=== PATIENT | male | born 1960 | race Caucasian/White ===

== ENCOUNTER 2020-11-28 09:16 | Inpatient (IN) | payer OTHER ==
[~2020-11-28] VITALS: Ht 177.8 cm; Wt 82.8 kg
[2020-11-28 09:48] LABS: BILIRUBIN, URINE MANUAL OBSCURED (NEGATIVE); GLUCOSE, URINE (UA) MANUAL OBSCURED mg/dL (NEGATIVE); KETONE, URINE MANUAL OBSCURED mg/dL (NEGATIVE); UROBILINOGEN, URINE MANUAL OBSCURED mg/dl (NORMAL)
[2020-11-28 10:40] LABS: HEMATOCRIT 44.2 % (42.0-52.0); HEMOGLOBIN 14.8 g/dl (13.5-17.5); MEAN CORPUSCULAR HGB CONC 33.5 g/dl (32.0-36.5); MEAN CORPUSCULAR VOLUME 89.5 fl (80.0-96.0); PLATELET COUNT, AUTOMATED 273 10^3/uL (150-450); RED BLOOD COUNT 4.94 10^6/uL (4.30-6.10); WHITE BLOOD COUNT 8.5 10^3/uL (4.0-10.0)
[2020-11-28 10:53] LABS: INR 0.92; PROTHROMBIN TIME 12.5 SECONDS (12.5-14.3)
[2020-11-28 10:54] LABS: PARTIAL THROMBOPLASTIN TIME 39.2 SECONDS (24.2-38.5)
[2020-11-28 11:08] LABS: BLOOD UREA NITROGEN 12 MG/DL (7-18); CALCIUM LEVEL 9.4 MG/DL (8.5-10.1); CARBON DIOXIDE LEVEL 24 MEQ/L (21-32); CHLORIDE LEVEL 107 MEQ/L (98-107); CREATININE FOR GFR 0.87 MG/DL (0.70-1.30); GLOMERULAR FILTRATION RATE > 60.0 (>56); GLUCOSE, FASTING 96 MG/DL (70-100); POTASSIUM SERUM 3.7 MEQ/L (3.5-5.1); SODIUM LEVEL 138 MEQ/L (136-145)
[2020-11-28 11:37] LABS: ALBUMIN 4.1 GM/DL (3.2-5.2); BILIRUBIN,DIRECT 0.1 MG/DL (0.0-0.2); BILIRUBIN,TOTAL 0.4 MG/DL (0.2-1.0); TOTAL PROTEIN 7.3 GM/DL (6.4-8.2)
--- NOTE | 2020-11-28 11:57 | REP ---
INDICATION: hematuria with large clots, urinary retention, concern mass. COMPARISON: None. TECHNIQUE: Real-time sonographic evaluation of bladder performed. FINDINGS: Bladder measures 9.9 x 8.5 x 6.7 cm, total volume 368 cc. Heterogeneous soft tissue fills the bladder lumen almost completely. This measures 9.2 x 7.8 x 6.7 cm. Portions appear partially cystic with septations. Ureteral jets could not be visualized with Doppler color evaluation. The patient was unable to void. IMPRESSION: Complex soft tissue in the bladder lumen 9.2 x 7.8 x 6.7 cm, with mild cystic components and septations. This could represent a large blood clot but an underlying bladder mass cannot be excluded. <Electronically signed by Tyler Garcia > 11/28/20 [id number]
[2020-11-28] MEDS ORDERED: LIDOCAINE 2% 5ML JELLY UROJET TOP ONE ×2 (12:00→14:00)
[2020-11-28] MEDS ORDERED: ISOVUE-370 76% 100ML VIAL As Ordered ONE (12:48)
--- NOTE | 2020-11-28 13:25 | REP ---
INDICATION: hematuria, retension concern for mass, urogram. COMPARISON: None TECHNIQUE: Axial precontrast, contrast-enhanced and delayed images from the lung bases to the pubic symphysis using 100 cc Isovue 370 intravenous contrast material. Coronal and sagittal reformations obtained. This CT examination was performed using the following dose reduction techniques: Automated exposure control, adjustment of mA and/or kv according to the patient's size, and the use of iterative reconstruction technique. FINDINGS: A Lowery catheter is identified within the bladder which also includes a 6 cm nonenhancing hyperdense somewhat heterogeneous collection likely representing large blood clot and hemorrhagic debris. Prostate gland measures 4.9 cm diameter with mass effect on the base of the bladder. The bilateral kidneys/ureters are normal and symmetric on all phases of evaluation with normal nephrograms and excretion to the collecting system. Liver includes multiple benign appearing cysts including 3.8 cm lesion in the medial left lobe. Spleen, pancreas, gallbladder, bilateral adrenal glands and kidneys are normal. The enteric system including stomach, small, and large bowel appears normal. No evidence for obstruction or acute inflammatory process. Normal terminal ileum and appendix are identified in the right lower quadrant. Pelvis demonstrates normal bladder and age-appropriate prostate/seminal vesicles. No ascites. No free air. No intraperitoneal or retroperitoneal adenopathy. Abdominal aorta and vasculature appear normal. Musculoskeletal structures are intact and without acute osseous abnormality. Lung bases are clear. IMPRESSION: 1. 6 cm hyperdense collection in the bladder suggesting blood clot and sequelae of hemorrhagic cystitis. Prostatomegaly with mass effect on the base of the bladder. 2. Normal appearance of the bilateral kidneys/ureters. <Electronically signed by Andrés Johnston > 11/28/20 2012
[2020-11-28 15:27] LABS: RSV AMPLIFICATION NEGATIVE (NEGATIVE)
[2020-11-28] MEDS ORDERED: ACETAMINOPHEN TAB 650MG DOSE (2X325MG) PO PRN (15:30)
--- NOTE | 2020-11-28 15:43 | HPEPDOC ---
[facility] Medical History & Physical Date of Admission Nov 28, 2020 Date of Service: Nov 28, 2020 History and Physical Chief complaint: Who presented to the emergency room with blood in his urine History of present illness: Patient is a 60-year-old male who presented to the hospital with blood in his urine. Patient reported that on Saturday he had a single episode of blood in his urine, but then had dissipated on its own. Saturday morning, went by, without event, however, that evening he began to experience several episodes of blood in his urine and with a large clot that was passed reported as 6 inches. Today. Patient had some difficulty with urination reported a red tinged colored urine. Upon arrival to emergency room, patient has had a Lowery catheter placed which has provided some relief. Patient denies any abdominal pain, fevers, chills, burning with urination. Does report some constipation. Denies any diarrhea. Patient denies any chest pain, shortness of breath or palpitations. Reports that he experiences chronic cough from smoking. Reports a weight gain over last 3 months. Reports his appetite is doing fine. Past Medical History: GERD Past Surgical History: Tonsillectomy Right knee surgery 2 Left knee surgery 1 Right hip surgery 2 Left foot surgery 1 Prostate biopsy 2015 with no signs of malignancy Allergies: See below Medications: Family History: - Mothers side of the family with multiple unknown cancers - Father with a history of an NC at the age of 40. No known cancer history Social History: - Patient reports that he is an active smoker for 45 years at <1ppd, Quit alcohol consumption 24 years ago. 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 Review of Systems: 10 point review of systems complete, all negative otherwise stated in HPI Physical exam: - Vitals: BP [146/71], HR [63], RR [18], Sat [98%RA], Temp [97.8F] - General: Lying in bed, No acute distress, Speaking in full sentences, AAOx3 - HEENT: NC, AT, PERRLA - CVS: RRR, +S1S2 - Lungs: Fair air entry bilaterally, No rales / rhonchi, Mild wheezing - Abdomen: Soft, Non-distended, Non-tender, + Bowel sounds x 4 - Extremities: No lower extremity edema, No calf tenderness - Neuro: No focal motor or sensory deficit - Skin: No visible rashes Labs: Bladder US 11/28: Complex soft tissue in the bladder lumen 9.2 x 7.8 x 6.7 cm, with mild cystic components and septations. This could represent a large blood clot but an underlying bladder mass cannot be excluded. CT abdomen / pelvis 11/28: 1. 6 cm hyperdense collection in the bladder suggesting blood clot and sequelae ofhemorrhagic cystitis. Prostatomegaly with mass effect on the base of the bladder. 2. Normal appearance of the bilateral kidneys/ureters. Imaging: EKG: Assessment and Plan: Hematuria - possibly 2/2 malignancy, possibly 2/2 hemorrhagic cystitis - Patient presented to the emergency room with complaints of blood in his urine over the last 3 days - Patient had difficulty with urination this morning - Lowery catheter placed in the emergency room has alleviated his retention symptoms - Currently patient is hemodynamically stable - Hemoglobin is at 14.8, will trend H&H - Urology has been called on consultation Wheezing - Will start DuoNeb PRN GERD - Currently not on medications DVT prophylaxis - Will start TEDs/Sequentials Vital Signs Vital Signs Date Time Temp Pulse Resp B/P (MAP) Pulse Ox O2 Delivery O2 Flow Rate FiO2 11/28/20 13:16 97.8 63 18 146/71 (96) 98 Room Air Laboratory Data Labs 24H Laboratory Tests 2 11/28/20 09:41: Urine Color (VICKY) REDH, Urine Appearance (VICKY) TURBIDH, Urine pH (VICKY) OBSCUREDH, Urine Specific [place] (VICKY) , Bedside Urine Glucose (UA) OBSCUREDH, Bedside Urine Ketones (LAB) OBSCUREDH, Bedside Urine Blood OBSCUREDH, Bedside Urine Nitrite (LAB) OBSCUREDH, Bedside Urine Bilirubin (LAB) OBSCUREDH, Bedside Urine Urobilinogen (LAB) OBSCUREDH, Bedside Urine Leukocyte Esterase (L OBSCUREDH, Microscopic Urinalysis Comment 11/28/20 10:10: Nucleated Red Blood Cells % (auto) 0.0, Prothrombin Time 12.5, Prothromb Time International Ratio 0.92, Activated Partial Thromboplast Time 39.2H, Anion Gap 7L, Glomerular Filtration Rate > 60.0, Calcium Level 9.4, Total Bilirubin 0.4, Direct Bilirubin 0.1, Aspartate Amino Transf (AST/SGOT) 22, Alanine Aminotransferase (ALT/SGPT) 29, Alkaline Phosphatase 86, Total Protein 7.3, Albumin 4.1, Albumin/Globulin Ratio 1.3, Lipase 148 11/28/20 14:38: Coronavirus (COVID-19)(PCR) NEGATIVE, Influenza Type A (RT-PCR) NEGATIVE, Influenza Type B (RT-PCR) NEGATIVE, Respiratory Syncytial Virus (PCR) NEGATIVE CBC/BMP Laboratory Tests 11/28/20 10:10 Microbiology Microbiology 11/28/20 Urine Culture, Received Pending Home Medications No Active Prescriptions or Reported Meds Allergies Coded Allergies: No Known Allergies (Unverified , 11/28/20) VIET OLGUIN MD Nov 28, 2020 15:43
[2020-11-28] MEDS ORDERED: IPRATROPIUM 0.5MG/ALBUTEROL 2.5MG INH SOL UD 3ML (DUONEB) NEB PRN (15:45)
--- NOTE | 2020-11-28 16:12 | CR.PDOC ---
General Date of Consultation: Nov 28, 2020 Consultation REASON FOR CONSULTATION/CHIEF COMPLAINT: Gross hematuria with clot retention HISTORY OF PRESENT ILLNESS: Patient is a 60-year-old gentleman who presented to the emergency room with difficulty urinating and a 2 day history of painless gross hematuria. Saturday he saw blood in his urine and then Saturday was having blood clots and then woke up this morning unable to urinate. It does sound like he has had irritative and obstructive voiding symptoms for several years getting progressively worse. He complains of nocturia every 2 hours, not feeling as though he empties his bladder completely, slow stream usually in the morning, and some urinary urgency. He does have a history of a prostate biopsy back in 2014 which was reportedly negative for an elevated PSA level. He has not been seen by urology he says since that time. He denies any previous history of gross hematuria, kidney stones, burning with urination, or problems with recurrent urinary tract infections. He has not been on antibiotics for BPH. A CT scan of the abdomen and pelvis was reviewed from 11/28/20 and this did show prostatomegaly. There was a mass in the bladder and most likely this was a large blood clot but of course something else could not be completely ruled out. There was no upper tract abnormalities. His H&H was stable with a Hb of 14.9 and his creatinine was 0.87. ALLERGIES: Please see below. HOME MEDICATIONS: Please see below. PAST MEDICAL HISTORY: -GERD PAST SURGICAL HISTORY: Tonsillectomy Multiple orthopedic procedures including bilateral knee surgery, right hip surgery, left foot surgery FAMILY HISTORY: Father had a history of an MD at the age of 40 and no known cancer history SOCIAL HISTORY: He is , retired, and smokes 1/2-3/4 of a pack of cigarettes daily. He does not drink any alcohol. REVIEW OF SYSTEMS: A 12 system review was essentially negative except for constipation PHYSICAL EXAMINATION: VITAL SIGNS: Please see below. GENERAL APPEARANCE: Well-developed well-nourished gentleman lying in bed in no acute distress HEENT: Normocephalic atraumatic PERRLA RESPIRATORY: No use of accessory muscles. Lungs are clear to auscultation percussion. CARDIOVASCULAR: Regular rate and rhythm with no rubs gallops or murmurs appreciated ABDOMEN: Soft and nontender without any rebound or guarding. EXTREMITIES: No cyanosis clubbing or edema NEUROLOGICAL: No focal motor or sensory deficits PSYCHIATRIC: Alert and oriented 3 Genitourinary: Phallus is circumcised and normal meatal opening and a Lowery catheter is in place on CBI. The urine is still quite red. His testicles are bilaterally descended without any tenderness or masses. He did not want a rectal exam done today because she has not had a bowel movement and feels that it is down there and it would be uncomfortable for him. LABORATORY DATA: Please see below. ASSESSMENT: -Gross hematuria with clot retention which was painless in nature most likely secondary to prostatomegaly PLAN: -Continue continuous bladder irrigation and hand irrigate the catheter as needed -Patient will require cystoscopy and if his bleeding stops wall an inpatient this can be done as an outpatient basis but sometimes if the bleeding does not stop he will need cystoscopy with irrigation in the OR -Patient will need to be started on Flomax and finasteride upon discharge Patient will be signed out to Dr. Boateng who starts tomorrow morning at 5 AM for further urologic management. Vital Signs/I&O Vital Signs Date Time Temp Pulse Resp B/P (MAP) Pulse Ox O2 Delivery O2 Flow Rate FiO2 11/28/20 15:54 98.1 60 18 142/76 (98) 99 Room Air Laboratory Data Labs 24H Laboratory Tests 2 11/28/20 09:41: Urine Color (VICKY) REDH, Urine Appearance (VICKY) TURBIDH, Urine pH (VICKY) OBSCUREDH, Urine Specific [place] (VICYK) , Bedside Urine Glucose (UA) OBSCUREDH, Bedside Urine Ketones (LAB) OBSCUREDH, Bedside Urine Blood OBSCUREDH, Bedside Urine Nitrite (LAB) OBSCUREDH, Bedside Urine Bilirubin (LAB) OBSCUREDH, Bedside Urine Urobilinogen (LAB) OBSCUREDH, Bedside Urine Leukocyte Esterase (L OBSCUREDH, Microscopic Urinalysis Comment 11/28/20 10:10: Nucleated Red Blood Cells % (auto) 0.0, Prothrombin Time 12.5, Prothromb Time International Ratio 0.92, Activated Partial Thromboplast Time 39.2H, Anion Gap 7L, Glomerular Filtration Rate > 60.0, Calcium Level 9.4, Total Bilirubin 0.4, Direct Bilirubin 0.1, Aspartate Amino Transf (AST/SGOT) 22, Alanine Aminotransferase (ALT/SGPT) 29, Alkaline Phosphatase 86, Total Protein 7.3, Albumin 4.1, Albumin/Globulin Ratio 1.3, Lipase 148 11/28/20 14:38: Coronavirus (COVID-19)(PCR) NEGATIVE, Influenza Type A (RT-PCR) NEGATIVE, Influenza Type B (RT-PCR) NEGATIVE, Respiratory Syncytial Virus (PCR) NEGATIVE CBC/BMP Laboratory Tests 11/28/20 10:10 Microbiology Microbiology 11/28/20 Urine Culture, Received Pending Allergies Coded Allergies: No Known Allergies (Unverified , 11/28/20) Home Medications No Active Prescriptions or Reported Meds SHAJI VENCES MD Nov 28, 2020 16:12
[2020-11-28 16:25] VITALS: BP 152/85
[2020-11-28 18:08] LABS: HEMATOCRIT 41.8 % (42.0-52.0); HEMOGLOBIN 13.9 g/dl (13.5-17.5)
[2020-11-28 22:00] VITALS: BP 121/72
[2020-11-29] VITALS (7 sets, daily range): BP systolic 125–140; BP diastolic 72–82
[2020-11-29 00:20] LABS: HEMATOCRIT 40.2 % (42.0-52.0); HEMOGLOBIN 13.3 g/dl (13.5-17.5)
[2020-11-29 06:02] LABS: BASO # 0.1 10^3/uL (0.0-0.2); BASO % 0.6 % (0.0-1.0); EOS # 0.3 10^3/uL (0.0-0.5); EOS % 2.9 % (0.0-3.0); HEMATOCRIT 42.7 % (42.0-52.0); LYMPH # 1.6 10^3/uL (1.5-5.0); LYMPH % 17.5 % (24.0-44.0); MEAN CORPUSCULAR HEMOGLOBIN 29.4 pg (27.0-33.0); MEAN CORPUSCULAR HGB CONC 32.8 g/dl (32.0-36.5); MEAN CORPUSCULAR VOLUME 89.5 fl (80.0-96.0); MONO # 0.7 10^3/uL (0.0-0.8); NEUTROPHILS # 6.3 10^3/uL (1.5-8.5); NEUTROPHILS % 70.7 % (36.0-66.0); PLATELET COUNT, AUTOMATED 251 10^3/uL (150-450); RED BLOOD COUNT 4.77 10^6/uL (4.30-6.10); WHITE BLOOD COUNT 8.9 10^3/uL (4.0-10.0)
[2020-11-29 06:20] LABS: BLOOD UREA NITROGEN 11 MG/DL (7-18); CARBON DIOXIDE LEVEL 29 MEQ/L (21-32); CHLORIDE LEVEL 104 MEQ/L (98-107); CREATININE FOR GFR 0.83 MG/DL (0.70-1.30); GLOMERULAR FILTRATION RATE > 60.0 (>56); GLUCOSE, FASTING 83 MG/DL (70-100); POTASSIUM SERUM 3.7 MEQ/L (3.5-5.1); SODIUM LEVEL 138 MEQ/L (136-145)
--- NOTE | 2020-11-29 11:00 | IPNPDOC ---
Text Note Date of Service The patient was seen on 11/29/20. NOTE Subjective: Patient is a 60-year-old male who presented to the hospital with blood in his urine. Patient reported that on Saturday he had a single episode of blood in his urine, but then had dissipated on its own. Saturday morning, went by, without event, however, that evening he began to experience several episodes of blood in his urine and with a large clot that was passed reported as 6 inches. Today, patient had some difficulty with urination reported a red tinged colored urine. Upon arrival to emergency room, patient has had a Lowery catheter placed which has provided some relief. Patient was admitted to the hospital service for further evaluation and treatment. Urology was called on consultation. Patient was seen and examined at the bedside. Currently, he denies any lightheadedness, dizziness, chest pain, shortness breath, palpitations. Has not experience any nausea, vomiting, abdominal pain. Patient has a Lowery catheter in place any urine output appears to be light pink tinged. Objective: Vitals (See below) General: Lying in bed, appears comfortable, AAOx3 HEENT: NC, AT CVS: RRR, +S1S2 Lungs: Fair air entry b/l, there is no appreciable wheezing, rhonchi or rales Abdomen: Soft, ND, NT Extremities: LE are without edema, - Calf tenderness Imaging: Bladder US 11/28: Complex soft tissue in the bladder lumen 9.2 x 7.8 x 6.7 cm, with mild cystic components and septations. This could represent a large blood clot but an underlying bladder mass cannot be excluded. CT abdomen / pelvis 11/28: 1. 6 cm hyperdense collection in the bladder suggesting blood clot and sequelae ofhemorrhagic cystitis. Prostatomegaly with mass effect on the base of the bladder. 2. Normal appearance of the bilateral kidneys/ureters. Assessment and plan: Hematuria - possibly 2/2 malignancy, possibly 2/2 hemorrhagic cystitis, possibly 2/2 BPH - Patient presented to the ER with complaints of blood in his urine over the last 3 days - Hemodynamically stable - Lowery catheter placed in the ER has alleviated his retention symptoms; output in Lowery catheter has been very light and tinged - Continue with continuous bladder irrigation - Hemoglobin is at 14.8, Hg remains stable - will continue to trend H&H - Urology on consultation; discussed case with Dr. Boateng; will determine need for further continuous bladder irrigation versus cystoscopy today Chronic smoker - No evidence of wheezing this morning - c/w inhaled therapy as ordered GERD - Currently not on medications DVT prophylaxis - c/w TEDs/Sequentials VS,Fishbone, I+O VS, Fishbone, I+O Laboratory Tests 11/28/20 17:56 11/28/20 23:37 11/29/20 05:42 Vital Signs Date Time Temp Pulse Resp B/P (MAP) Pulse Ox O2 Delivery O2 Flow Rate FiO2 11/29/20 06:00 97.9 64 17 135/82 (99) 95 Room Air I&O- Last 24 Hours up to 6 AM 11/29/20 05:59 Intake Total 0 ml Output Total 3860 ml Balance -3860 ml VIET OLGUIN MD Nov 29, 2020 11:00
[2020-11-29 12:00] LABS: HEMATOCRIT 43.4 % (42.0-52.0); HEMOGLOBIN 14.7 g/dl (13.5-17.5)
--- NOTE | 2020-11-29 12:58 | IPNPDOC ---
Subjective Review oF Systems Chief Complaint The patient is a 60-year-old male admitted with a reason for visit of Hematuria. Events since Last Encounter Patient is comfortable at this time. He notes no further gross hematuria after evacuation of clots and three-way irrigation of the bladder overnight. I explained the option of doing a cystoscopy while here in the hospital exclude the possibility of bladder lesion extremities hematuria. I explained the CT imaging demonstrated no upper tract abnormalities. Patient would like to quit with cystoscopy. I explained the procedure to the patient on the benefits, risks, alternatives possible adverse effects. Informed consents obtained. Objective Physical Examination General Exam: Other (alert male sitting up and in no distress. Irrigation through three-way Lowery catheter is completely clear) Vital Signs/I&O Vital Signs Date Time Temp Pulse Resp B/P (MAP) Pulse Ox O2 Delivery O2 Flow Rate FiO2 11/29/20 06:00 97.9 64 17 135/82 (99) 95 Room Air I&O- Last 24 Hours up to 6 AM 11/29/20 06:00 Intake Total 0 ml Output Total 3860 ml Balance -3860 ml Laboratory Data Labs 24H Laboratory Tests 2 11/28/20 14:38: Coronavirus (COVID-19)(PCR) NEGATIVE, Influenza Type A (RT-PCR) NEGATIVE, Influe nza Type B (RT-PCR) NEGATIVE, Respiratory Syncytial Virus (PCR) NEGATIVE 11/28/20 17:56: Procalcitonin <0.05 11/29/20 05:42: Immature Granulocyte % (Auto) 0.3, Neutrophils (%) (Auto) 70.7H, Lymphocytes (%) (Auto) 17.5L, Monocytes (%) (Auto) 8.0H, Eosinophils (%) (Auto) 2.9, Basophils (%) (Auto) 0.6, Neutrophils # (Auto) 6.3, Lymphocytes # (Auto) 1.6, Monocytes # (Auto) 0.7, Eosinophils # (Auto) 0.3, Basophils # (Auto) 0.1, Nucleated Red Blood Cells % (auto) 0.0, Anion Gap 5L, Glomerular Filtration Rate > 60.0, Calcium Level 9.0, Magnesium Level 2.0 CBC/BMP Laboratory Tests 11/28/20 17:56 11/28/20 23:37 11/29/20 05:42 11/29/20 11:50 Microbiology Microbiology 11/28/20 Urine Culture - Final, Complete Assessment/Plan Date Seen The patient was seen on 11/29/20. Plan/VTE VTE Prophylaxis Ordered?: Yes Plan Impression: 1. Gross hematuria, evacuation of clots and three-way irrigation Lowery catheter continuous overnight, now clear Plan: Proceed with cystoscopy to complete her evaluation for hematuria in the operating room under anesthesia. I explained the Procedure to the patient. Informed consent was obtained. ERROL PRIETO MD Nov 29, 2020 12:58
[2020-11-29] MEDS ORDERED: dexameTHASONE 4 MG/ML 1ML VIAL (J1100 PER 1MG) As Ordered ONE (16:41)
[2020-11-29] MEDS ORDERED: LIDOCAINE 2% 100MG/5ML SDV (FOR ANES.) As Ordered ONE (16:41)
[2020-11-29] MEDS ORDERED: MIDAZOLAM INJ 2MG/2ML VIAL (J2250 PER 1MG) As Ordered ONE (16:41)
[2020-11-29] MEDS ORDERED: propofoL 200 MG/20 ML VIAL As Ordered ONE (16:41)
[2020-11-29] MEDS ORDERED: ONDANSETRON 4MG/2ML VIAL As Ordered ONE (16:41)
[2020-11-29] MEDS ORDERED: ACETAMINOPHEN 1000MG 100ML IV BTL (OFIRMEV) (J0131 PER 10MG) As Ordered ONE (17:30)
[2020-11-29] MEDS ORDERED: fentaNYL 100 MCG/2 ML INJECTION (J3010) As Ordered ONE (17:44)
[2020-11-29] MEDS ORDERED: LR 1,000 ML IV SCH (18:30)
[2020-11-29] MEDS ORDERED: ONDANSETRON 4MG/2ML VIAL IV PRN (18:30)
[2020-11-29] MEDS ORDERED: fentaNYL 100 MCG/2 ML INJECTION (J3010) IV PRN (18:30)
[2020-11-29] MEDS ORDERED: oxyCODONE 5MG TAB PO PRN (18:30)
[2020-11-29 19:37] LABS: HEMOGLOBIN 14.5 g/dl (13.5-17.5)
[2020-11-30 00:17] LABS: HEMATOCRIT 42.2 % (42.0-52.0); HEMOGLOBIN 14.4 g/dl (13.5-17.5)
[2020-11-30 02:00] VITALS: BP 114/72
[2020-11-30 06:00] VITALS: BP 137/78
[2020-11-30 06:04] LABS: BASO % 0.1 % (0.0-1.0); HEMOGLOBIN 13.9 g/dl (13.5-17.5); LYMPH # 0.7 10^3/uL (1.5-5.0); LYMPH % 5.6 % (24.0-44.0); MEAN CORPUSCULAR HGB CONC 33.9 g/dl (32.0-36.5); MEAN CORPUSCULAR VOLUME 88.6 fl (80.0-96.0); MONO # 0.7 10^3/uL (0.0-0.8); MONO % 5.5 % (0.0-5.0); NEUTROPHILS # 11.3 10^3/uL (1.5-8.5); NEUTROPHILS % 88.3 % (36.0-66.0); PLATELET COUNT, AUTOMATED 260 10^3/uL (150-450); RED BLOOD COUNT 4.63 10^6/uL (4.30-6.10); WHITE BLOOD COUNT 12.8 10^3/uL (4.0-10.0)
[2020-11-30 06:20] LABS: BLOOD UREA NITROGEN 16 MG/DL (7-18); CALCIUM LEVEL 8.9 MG/DL (8.5-10.1); CARBON DIOXIDE LEVEL 26 MEQ/L (21-32); CHLORIDE LEVEL 105 MEQ/L (98-107); CREATININE FOR GFR 0.78 MG/DL (0.70-1.30); GLOMERULAR FILTRATION RATE > 60.0 (>56); GLUCOSE, FASTING 108 MG/DL (70-100); MAGNESIUM LEVEL 1.9 MG/DL (1.8-2.4); POTASSIUM SERUM 4.3 MEQ/L (3.5-5.1); SODIUM LEVEL 138 MEQ/L (136-145)
[2020-11-30] MEDS ORDERED: FLOM0.4C39 PO (07:37)
[2020-11-30] MEDS ORDERED: FINA5TAB2 PO (07:37)
--- NOTE | 2020-11-30 07:41 | ECGEPIP ---
[facility] Test Date: 2020-11-29 Pat Name: LOVE GRAY Department: Room: [place] [address] Gender: Male Caregivers Non Medical: PHONG : 1960 Requested By: Pollo Sandoval Order Number: [id number] Reading MD: Luiz Stone Measurements Intervals [place] Rate: 67 P: 63 WA: 160 QRS: -16 QRSD: 106 T: 30 QT: 412 QTc: 435 Interpretive Statements Normal sinus rhythm Inferior Q waves of uncertain significance Comparison tracing not on file Electronically Signed on 11-30-2020 7:40:41 EST by Luiz Stone
--- NOTE | 2020-11-30 08:06 | IPNPDOC ---
Subjective Review oF Systems Chief Complaint The patient is a 60-year-old male admitted with a reason for visit of Hematuria. Events since Last Encounter Patient has been voiding initially since cystoscopy last evening. His urine has been clear. He does have some dysuria. Explained the source of the bleeding appears to be prostatic hypertrophy and that the patient the need to continue finasteride and tamsulosin. Follow up in urology office in several weeks Objective Physical Examination General Exam: Alert, Cooperative, No Acute Distress, Other (alert male sitting up and in no distress. Irrigation through three-way Lowery catheter is completely clear) Vital Signs/I&O Vital Signs Date Time Temp Pulse Resp B/P (MAP) Pulse Ox O2 Delivery O2 Flow Rate FiO2 11/30/20 06:00 97.0 68 20 137/78 (97) 96 11/29/20 22:15 Room Air I&O- Last 24 Hours up to 6 AM 11/30/20 06:00 Intake Total 1520 ml Output Total 1075 ml Balance 445 ml Laboratory Data Labs 24H Laboratory Tests 2 11/30/20 05:38: Immature Granulocyte % (Auto) 0.5, Neutrophils (%) (Auto) 88.3H, Lymphocytes (%) (Auto) 5.6L, Monocytes (%) (Auto) 5.5H, Eosinophils (%) (Auto) 0.0, Basophils (%) (Auto) 0.1, Neutrophils # (Auto) 11.3H, Lymphocytes # (Auto) 0.7L, Monocytes # (Auto) 0.7, Eosinophils # (Auto) 0.0, Basophils # (Auto) 0.0, Nucleated Red Blood Cells % (auto) 0.0, Anion Gap 7L, Glomerular Filtration Rate > 60.0, Calcium Level 8.9, Magnesium Level 1.9 CBC/BMP Laboratory Tests 11/29/20 11:50 11/29/20 19:15 11/30/20 00:00 11/30/20 05:38 Microbiology Microbiology 11/28/20 Urine Culture - Final, Complete Assessment/Plan Date Seen The patient was seen on 11/30/20. Plan/VTE VTE Prophylaxis Ordered?: Yes Plan Assessment: Gross hematuria secondary to prostatic hypertrophy Recommendation: 1. Tamsulosin 0.4 mg at bedtime 2. Finasteride 5 mg by mouth daily 3. Follow-up urology office in several weeks 4. I asked the patient contact urology operative had 2 problems or questions. ERROL PRIETO MD Nov 30, 2020 08:06
--- NOTE | 2020-11-30 09:49 | DS.PDOC ---
Discharge Summary General Date of Admission Nov 28, 2020 at 15:23 Date of Discharge 11/30/2020 Discharge Summary PROCEDURES PERFORMED DURING STAY: Cystoscopy on 11/[address] Boateng ADMITTING DIAGNOSES / DISCHARGE DIAGNOSES: s/p Hematuria - likely 2/2 BPH, less likely 2/2 hemorrhagic cystitis or malignancy Chronic smoker GERD DVT prophylaxis COMPLICATIONS/CHIEF COMPLAINT: Hematuria. HISTORY OF PRESENT ILLNESS: Patient is a 60-year-old male who presented to the hospital with blood in his urine. Patient reported that on Saturday he had a single episode of blood in his urine, but then had dissipated on its own. Saturday morning, went by, without event, however, that evening he began to experience several episodes of blood in his urine and with a large clot that was passed reported as 6 inches. Today, patient had some difficulty with urination reported a red tinged colored urine. Upon arrival to emergency room, patient has had a Lowery catheter placed which has provided some relief. Patient was admitted to the hospital service for further evaluation and treatment. Urology was called on consultation. HOSPITAL COURSE: s/p Hematuria - likely 2/2 BPH, less likely 2/2 hemorrhagic cystitis or malignancy - Patient presented to the ER with complaints of blood in his urine over the st 3 days - Patient is status post Lowery catheter and his urine has remained clear - Hemodynamically stable - s/p Lowery and CBI - Hemoglobin has remained stable and has not required any transfusions - s/p Cystoscopy on 11/29 - Will start Finasteride and Tamsulosin on discharge - Urology on consultation; discussed case with Dr. Boateng; - Will have outpatient follow-up within the next 7 days Chronic smoker - No evidence of wheezing this morning - Advised smoking cessation - c/w inhaled therapy as ordered GERD - Currently not on medications DVT prophylaxis - c/w TEDs/Sequentials DISCHARGE MEDICATIONS: Please see below. ALLERGIES: Please see below. PHYSICAL EXAMINATION ON DISCHARGE: Vitals (See below) General: Lying in bed, appears to be comfortable without any acute distress, is awake, alert and oriented 3 HEENT: NC, AT CVS: +S1S2 Lungs: Air entry is fair bilaterally. There is no appreciated, rhonchi, crackles or wheezing Abdomen: Soft, nondistended and nontender Extremities: Lower story do not reveal any pitting edema, and there is no calf tenderness LABORATORY DATA: Please see below. IMAGING: Bladder US 11/28: Complex soft tissue in the bladder lumen 9.2 x 7.8 x 6.7 cm, with mild cystic components and septations. This could represent a large blood clot but an underlying bladder mass cannot be excluded. CT abdomen / pelvis 11/28: 1. 6 cm hyperdense collection in the bladder suggesting blood clot and sequelae ofhemorrhagic cystitis. Prostatomegaly with mass effect on the base of the bladder. 2. Normal appearance of the bilateral kidneys/ureters. ACTIVITY: [As tolerated]. DISCHARGE PLAN: Follow-up with primary care provider, and urology within the next 7 days Remain compliant with treatment plan and medications Return to the ER if you experience any problems DISPOSITION: Home DISCHARGE CONDITION: [Stable]. TIME SPENT ON DISCHARGE: 35 minutes. Vital Signs/I&Os Vital Signs Date Time Temp Pulse Resp B/P (MAP) Pulse Ox O2 Delivery O2 Flow Rate FiO2 11/30/20 06:00 97.0 68 20 137/78 (97) 96 11/29/20 22:15 Room Air I&O- Last 24 Hours up to 6 AM 11/30/20 06:00 Intake Total 1520 ml Output Total 1075 ml Balance 445 ml Laboratory Data Labs 24H Laboratory Tests 2 11/30/20 05:38: Immature Granulocyte % (Auto) 0.5, Neutrophils (%) (Auto) 88.3H, Lymphocytes (%) (Auto) 5.6L, Monocytes (%) (Auto) 5.5H, Eosinophils (%) (Auto) 0.0, Basophils (%) (Auto) 0.1, Neutrophils # (Auto) 11.3H, Lymphocytes # (Auto) 0.7L, Monocytes # (Auto) 0.7, Eosinophils # (Auto) 0.0, Basophils # (Auto) 0.0, Nucleated Red Blood Cells % (auto) 0.0, Anion Gap 7L, Glomerular Filtration Rate > 60.0, Calcium Level 8.9, Magnesium Level 1.9 CBC/BMP Laboratory Tests 11/29/20 11:50 11/29/20 19:15 11/30/20 00:00 11/30/20 05:38 Microbiology Microbiology 11/28/20 Urine Culture - Final, Complete Discharge Medications Scheduled Finasteride (Finasteride) 5 Mg Tablet, 1 TAB PO DAILY Tamsulosin HCl (Flomax) 0.4 Mg Capsule, 1 CAP PO DAILY Allergies Coded Allergies: No Known Allergies (Unverified , 11/28/20) VIET OLGUIN MD Nov 30, 2020 09:49
[2020-11-30 10:00] VITALS: BP 111/63
--- NOTE | 2020-11-30 10:23 | RO ---
OPERATIVE NOTE DATE OF OPERATION: 11/29/2020 PREOPERATIVE DIAGNOSIS: Gross hematuria with clot retention. POSTOPERATIVE DIAGNOSIS: Gross hematuria with clot retention, prostatic hypertrophy. PROCEDURE: Cystourethroscopy; evacuation of clots from bladder. SURGEON: Leon Boateng MD ACCOUNTS PAYABLE OR RECEIVABLE CLERK: ANESTHESIA: General LMA. COMPLICATIONS: None. DRAINS: None. SPECIMEN: None. ESTIMATED BLOOD LOSS: None. HISTORY: The patient is a 60-year-old male who presented yesterday with acute urinary retention secondary to clots in his bladder. The patient underwent catheter placement with manual irrigation of clots, was observed overnight with three-way Lowery catheter irrigation which cleared. The patient's CT imaging demonstrated no upper tract abnormalities. The patient is to undergo cystoscopy to evaluate for possible lower urinary tract source of his bleeding. The procedure was carefully explained to the patient along with benefits, risks, alternatives, possible adverse effects. Informed consent was obtained. DESCRIPTION OF PROCEDURE: After successful anesthetization with satisfactory level of general anesthesia via LMA the patient was placed in the dorsal lithotomy position on the operating table using Nimesh stirrups. The patient's genitalia was prepped and draped in sterile manner using Betadine after removal of the existing Lowery catheter. #22 [place] Olympus cystoscope sheath with 30-degree lens was inserted in the urethra and easily passed into the bladder. There was erythema of the prostatic urethral mucosa and erythema of the urethral mucosa which was consistent with the indwelling Lowery catheter. No bleeding points were noted. There was a median lobe protruding into the base of the bladder. The lateral lobes of the prostate were erythematous, enlarged and meeting in the midline obstructing the bladder outlet approximately 3 cm in length. The bladder had diffuse erythema. Some blood clots were present which were manually irrigated. There was clear efflux of urine from both ureteral orifices. The remainder of the bladder other than mild diffuse erythema contained no lesions. The 30-degree and 70-degree lenses were carefully used to examine the bladder without any other abnormalities being noted. The bladder was then evacuated and scope withdrawn. The patient was awakened and transported to the recovery room in satisfactory condition having tolerated the procedure well.
--- NOTE | 2020-11-30 12:54 | ECHO ---
DATE OF PROCEDURE: 11/29/2020 Age: 60 Gender: Male Height: 70 inches Weight: 194 pounds Body Surface Area: 2.07 m2 [facility] REFERRING PHYSICIAN: Lottie Herndon MD. INDICATION: Edema. MEASUREMENTS: 2D Measurements: RV 3.0 cm. LV 4.8 cm Septum 1.1 cm Posterior wall 1.1 cm Aortic Root 3.9 cm LA - 3.4 cm LVEF 65% Doppler Measurements: AV 1.4 m/s LVOT 1.06 m/s LVOT diameter 1.8 cm MV-E 71, A 80, EA ratio 0.9 Early mitral deceleration time 272 msec E prime medial 8.5, A prime medial 12.5 E prime lateral 11 PV - 0.8 m/s Pulmonary artery acceleration time 111 msec RVSP 33 mmHg IVC - 1.4 cm COMMENTS: Normal sinus rhythm with intraventricular conduction disturbance. A technically challenging study in light of the patient's body habitus, but diagnostically useful information was still obtained. M-mode and 2-dimensional echocardiography was performed with pulse, continuous wave, color flow, and tissue Doppler studies. Normal left ventricular size, wall thickness, and wall motion. Normal left atrial size with a grade 1 LV diastolic dysfunction but currently normal estimated mean left atrial pressure. Normal right heart chamber sizes and motion with current Doppler estimated pulmonary arterial pressure upper limits of normal to borderline increased. Normal to small inferior vena caval diameter with normal respiratory collapse against an elevated central venous pressure. Borderline dilated aortic root but normal ascending aortic diameter. Mild aortic valvular sclerosis without stenosis and only very mild insufficiency. Mild degenerative changes of the mitral valvular apparatus with normal leaflet excursion and no posterior systolic buckling and only very mild insufficiency. Normal appearing tricuspid valve with mild insufficiency. No apparent intracardiac mass or pericardial effusion. MTDD
== END 2020-11-30 11:37 | disposition home or self-care (01) | DRG 501 ==
LOC: M ED 09:16 → M ED INP 15:23 → M MSPAV 16:26
PROVIDERS: ADMIT Internal Medicine; ATTEND Internal Medicine
PROC: 0TCB8ZZ Extirpation of Matter from Bladder, Via Natural or Artificial Opening Endoscopic (ICD-10-PCS; principal; 2020-11-29 17:30)
DX: N40.0 Benign prostatic hyperplasia without lower urinary tract symptoms (principal); F17.210 Nicotine dependence, cigarettes, uncomplicated; K21.9 Gastro-esophageal reflux disease without esophagitis; R31.9 Hematuria, unspecified

== ENCOUNTER → 2021-07-05 | Outpatient (REF) | payer OTHER ==
[~2021-07-05] MED LIST: FINA5TAB2 PO; FLOM0.4C39 PO
== END ==
LOC: M SMT 15:32
PROVIDERS: ATTEND Urology
DX: R97.20 Elevated prostate specific antigen [PSA] (principal)